=== PATIENT | male | born 1985 | race Caucasian/White ===

== ENCOUNTER 2023-01-15 12:23 | Emergency (ER) | payer OTHER ==
[~2023-01-15] VITALS: Ht 170.1 cm; Wt 92.0 kg
[2023-01-15 12:40] VITALS: BP 132/85
[2023-01-15] MEDS ORDERED: ONDANSETRON 4 MG (ZOFRAN) ORAL DISSOLVE TAB SL ONE (13:45)
[2023-01-15] MEDS ORDERED: LACTATED RINGERS 1,000 ML IV ONE (14:15)
[2023-01-15] MEDS ORDERED: COLCHICINE 0.6 MG (COLCRYS) TABLET PO ONE ×2 (14:15→15:30)
[2023-01-15] MEDS ORDERED: METOCLOPRAMIDE INJ 10 MG/2 ML (REGLAN) IVP ONE (14:15)
[2023-01-15] MEDS ORDERED: fentaNYL INJ 100 MCG/2 ML AMP IVP ONE (14:15)
[2023-01-15 14:28] LABS: BASOPHILS % (AUTO) 0 % (0-10); EOSINOPHILS # (AUTO) 0.1 10^3/uL (0.0-0.3); EOSINOPHILS % (AUTO) 1 % (0-10); HEMATOCRIT 45 % (40-54); HEMOGLOBIN 16.5 g/dL (13.3-17.7); LYMPHOCYTES # (AUTO) 1.7 10^3/uL (1.0-4.0); LYMPHOCYTES % (AUTO) 21 % (12-44); MEAN CORPUSCULAR HEMOGLOBIN 33 pg (25-34); MEAN CORPUSCULAR HGB CONC 37 g/dL (32-36); MEAN CORPUSCULAR VOLUME 88 fL (80-99); MEAN PLATELET VOLUME 9.9 fL (9.0-12.2); MONOCYTES # (AUTO) 0.7 10^3/uL (0.0-1.0); MONOCYTES % (AUTO) 9 % (0-12); NEUTROPHILS # (AUTO) 5.2 10^3/uL (1.8-7.8); NEUTROPHILS % (AUTO) 68 % (42-75); PLATELET COUNT 253 10^3/uL (130-400); WHITE BLOOD COUNT 7.7 10^3/uL (4.3-11.0)
--- NOTE | 2023-01-15 14:34 | Diagnostic Imaging Report ---
INDICATION: Left foot pain. COMPARISON: None. DISCUSSION: Three views of the left foot were obtained. Mild bunion formation noted. No fracture or dislocation. No erosion or soft tissue calcification. Alignment is anatomic. Soft tissues are unremarkable. No foreign body. IMPRESSION: No acute abnormality identified within the left foot. Dictated by: Dictated on workstation # [id number]
[2023-01-15 14:38] LABS: ALBUMIN 4.6 GM/DL (3.2-4.5)
[2023-01-15 14:39] LABS: CHLORIDE 105 MMOL/L (98-107); POTASSIUM 3.7 MMOL/L (3.6-5.0); SODIUM 141 MMOL/L (135-145)
[2023-01-15 14:40] LABS: CALCIUM 9.8 MG/DL (8.5-10.1)
[2023-01-15 14:41] LABS: GLUCOSE 80 MG/DL (70-105); TOTAL PROTEIN 7.9 GM/DL (6.4-8.2)
[2023-01-15 14:42] LABS: CARBON DIOXIDE 27 MMOL/L (21-32)
[2023-01-15 14:43] LABS: BILIRUBIN,TOTAL 0.8 MG/DL (0.1-1.0)
[2023-01-15 14:44] LABS: ALKALINE PHOSPHATASE 66 U/L (40-136)
[2023-01-15 14:45] LABS: CREATININE SERUM 0.94 MG/DL (0.60-1.30); GFR ESTIMATED 106
[2023-01-15 14:46] LABS: BUN/CREATININE RATIO 10
[2023-01-15 14:47] LABS: ALANINE AMINOTRANSFERASE 45 U/L (0-55)
--- NOTE | 2023-01-15 14:55 | ED Lower Extremity ---
General Chief Complaint: Lower Extremity Stated Complaint: PAIN LEFT FOOT Nursing Triage Note: redness and pain started on the first. now difficult to bear weight and ambulate. Source: patient Exam Limitations: no limitations History of Present Illness Date Seen by Provider: Jan 15, 2023 Time Seen by Provider: 13:57 Initial Comments This 37-year-old gentleman presents to the emergency room with complaints of pain and erythema of the medial distal left foot for the past 3 days. He has bright blanching erythema in the area as well. The focus of the area just prox imal to the MTP joint of the first toe. He has no history of gout. He denies any injury or break to the skin. He has had long-term problems with severe tendinitis and bunions in both feet. He has been trying ibuprofen, Mobic, hot bath, and ice without any improvement. He believes he has been dehydrated because this pain has been causing nausea and decreased oral intake. Allergies and Home Medications Allergies Coded Allergies: No Known Drug Allergies (Unverified , 01/15/23) Patient Home Medication List Home Medication List Reviewed: Yes Allopurinol (Allopurinol) 100 Mg Tablet, 100 MG PO DAILY Prescribed by: ANUP KENNEDY on 01/15/23 1559 Hydrocodone/Acetaminophen (Hydrocodone-Acetamin 5-325 mg) 5 Mg-325 Mg Tablet, 1 TAB PO Q4H PRN for PAIN-BREAKTHROUGH Prescribed by: ANUP KENNEDY on 01/15/23 1600 Indomethacin (Indomethacin) 25 Mg Capsule, 25 MG PO TID Prescribed by: ANUP KENNEDY on 01/15/23 155 Prednisone (Prednisone) 20 Mg Tab, 40 MG PO DAILY Prescribed by: ANUP KENNEDY on 01/15/23 1559 Review of Systems Constitutional: no symptoms reported EENTM: no symptoms reported Respiratory: no symptoms reported Cardiovascular: no symptoms reported Gastrointestinal: see HPI Genitourinary: no symptoms reported Musculoskeletal: see HPI Skin: see HPI Psychiatric/Neurological: No Symptoms Reported Past Zbieyho-Cvyxge-Kzcnve Hx Patient Social History Tobacco Use?: Yes Tobacco type used: Cigarettes Smoking Status: Current Everyday Smoker Use of E-Cig and/or Vaping dev: No Substance type: Marijuana Alcohol Use?: Yes Alcohol type: Beer Alcohol Frequency: Once in a while Pt feels they are or have been: No Immunizations Up To Date Influenza Vaccine Up-to-Date: Yes; Up-to-Date First/Initial COVID19 Vaccinat: "2 shots" Past Medical History Surgery/Hospitalization HX: ptsd, depression, anxiety, ostieoarthritis, multiple ortho issues, bilateral lower ext tendonitis. right shoulder surgery, visectomy Surgeries: Yes Orthopedic Respiratory: No Cardiac: No Neurological: No Genitourinary: No Gastrointestinal: No Musculoskeletal: Yes (foot tendonitis and bunions) Endocrine: No HEENT: No Cancer: No Psychosocial: Yes Anxiety, PTSD, Depression Physical Exam Vital Signs Vital Signs - First Documented 01/15/23 12:40 Temp 36.9 Pulse 115 Resp 16 B/P (MAP) 132/85 (101) Pulse Ox 97 O2 Delivery Room Air Capillary Refill : Less Than 3 Seconds Height, Weight, BMI Height: '" Weight: lbs. oz. kg; 31.00 BMI Method: General Appearance: WD/WN, mild distress HEENT: normal ENT inspection Cardiovascular: regular rate, rhythm, no edema, no gallop Respiratory: normal breath sounds, no respiratory distress Legs: left leg non-tender, left leg normal inspection, left leg normal range of motion, left leg no evidence of injury Knees: left knee non-tender, left knee normal inspection, left knee normal range of motion, left knee no evidence of injury Ankles: left ankle non-tender, left ankle normal inspection, left ankle normal range of motion, left ankle no evidence of injury Feet: left foot other (Bright blanching erythema radiating out from the first MTP joint area. Pain with any range of motion of the great toe. Normal pedal pulse) Neurologic/Psychiatric: no motor/sensory deficits, alert, normal mood/affect Skin: warm/dry, other (as above) Progress/Results/Core Measures Results/Orders Lab Results Laboratory Tests Test 01/15/23 14:20 Range/Units White Blood Count 7.7 4.3-11.0 10^3/uL Red Blood Count 5.07 4.30-5.52 10^6/uL Hemoglobin 16.5 13.3-17.7 g/dL Hematocrit 45 40-54 % Mean Corpuscular Volume 88 80-99 fL Mean Corpuscular Hemoglobin 33 25-34 pg Mean Corpuscular Hemoglobin Concent 37 H 32-36 g/dL Red Cell Distribution Width 12.3 10.0-14.5 % Platelet Count 253 130-400 10^3/uL Mean Platelet Volume 9.9 9.0-12.2 fL Immature Granulocyte % (Auto) 1 % Neutrophils (%) (Auto) 68 42-75 % Lymphocytes (%) (Auto) 21 12-44 % Monocytes (%) (Auto) 9 0-12 % Eosinophils (%) (Auto) 1 0-10 % Basophils (%) (Auto) 0 0-10 % Neutrophils # (Auto) 5.2 1.8-7.8 10^3/uL Lymphocytes # (Auto) 1.7 1.0-4.0 10^3/uL Monocytes # (Auto) 0.7 0.0-1.0 10^3/uL Eosinophils # (Auto) 0.1 0.0-0.3 10^3/uL Basophils # (Auto) 0.0 0.0-0.1 10^3/uL Immature Granulocyte # (Auto) 0.0 0.0-0.1 10^3/uL Sodium Level 141 135-145 MMOL/L Potassium Level 3.7 3.6-5.0 MMOL/L Chloride Level 105 98-107 MMOL/L Carbon Dioxide Level 27 21-32 MMOL/L Anion Gap 9 5-14 MMOL/L Blood Urea Nitrogen 9 7-18 MG/DL Creatinine 0.94 0.60-1.30 MG/DL Estimat Glomerular Filtration Rate 106 BUN/Creatinine Ratio 10 Glucose Level 80 70-105 MG/DL Uric Acid 7.0 2.6-7.2 MG/DL Calcium Level 9.8 8.5-10.1 MG/DL Corrected Calcium 8.5-10.1 MG/DL Total Bilirubin 0.8 0.1-1.0 MG/DL Aspartate Amino Transf (AST/SGOT) 22 5-34 U/L Alanine Aminotransferase (ALT/SGPT) 45 0-55 U/L Alkaline Phosphatase 66 40-136 U/L C-Reactive Protein High Sensitivity 2.48 H 0.00-0.50 MG/DL Total Protein 7.9 6.4-8.2 GM/DL Albumin 4.6 H 3.2-4.5 GM/DL My Orders Orders - ANUP NUÑEZ MD Ondansetron Oral Dissolve Tab (Zofran (01/15/23 13:45) Ed Iv/Invasive Line Start (01/15/23 14:07) Lactated Ringers (Lr 1000 Ml Iv Solution (01/15/23 14:15) Fentanyl Inj (Sublimaze Injection) (01/15/23 14:15) Colchicine Tablet (Colcrys Tablet) (01/15/23 14:15) Cbc With Automated Diff (01/15/23 14:07) Comprehensive Metabolic Panel (01/15/23 14:07) Hs C Reactive Protein (01/15/23 14:07) Uric Acid (01/15/23 14:07) Metoclopramide Injection (Reglan Injecti (01/15/23 14:15) Foot, Left, 3 Views (01/15/23 14:07) Colchicine Tablet (Colcrys Tablet) (01/15/23 15:30) Medications Given in ED Vital Signs/I&O 01/15/23 12:40 Temp 36.9 Pulse 115 Resp 16 B/P (MAP) 132/85 (101) Pulse Ox 97 O2 Delivery Room Air Blood Pressure Mean: 101 Progress Progress Note : Progress Note Patient was interviewed and examined. X-rayw of the foot were obtained and radiologist report was reviewed. There were no acute abnormalities. Zofran was given for nausea. Pain was treated with fentanyl and colchicine which did result in improvement. Labs were obtained, reviewed, and interpreted by me. There is no significant elevation in WBC or CRP suggesting this is not cellulitis. Uric acid was at the upper limits of normal supporting diagnosis of gout. See discharge instructions for further discussion. Diagnostic Imaging Diagonstic Imaging: Xray Plain Films/CT/US/NM/MRI: other (left foot) Comments NAME: TIM ESCOBAR [facility] REC#: [id number] PT STATUS: REG ER : 1985 PHYSICIAN: ANUP NUÑEZ MD ADMIT DATE: 01/15/23/ER Draft Date of Exam:01/15/23 FOOT, LEFT, 3 VIEWS INDICATION: Left foot pain. COMPARISON: None. DISCUSSION: Three views of the left foot were obtained. Mild bunion formation noted. No fracture or dislocation. No erosion or soft tissue calcification. Alignment is anatomic. Soft tissues are unremarkable. No foreign body. IMPRESSION: No acute abnormality identified within the left foot. Dictated on workstation # [id number] Dict: 01/15/23 1432 Trans: 01/15/23 1434 [id number] Interpreted by: BIA COOK MD Departure Impression Primary Impression: Gouty arthritis Disposition: HOME, SELF-CARE Condition: Improved Departure-Patient Inst. Decision time for Depature: 15:54 Referrals: NO,LOCAL PHYSICIAN (PCP/Family) Primary Care Physician Patient Instructions: Gout ED, Lifestyle Changes to Manage Gout Add. Discharge Instructions: Try changing your NSAID medication to indomethacin. Start with 50 mg 3 times daily for 2 or 3 days and then 25 mg times daily as needed. Start allopurinol in about 6 weeks. Take your prednisone early in the day to avoid sleep disturbance and with food or milk to avoid stomach upset. You may use hydrocodone for breakthrough pain. Elevation and icing may also be helpful in reducing pain. Follow-up with a primary care provider for further discussion about gout prevention. Drink plenty of water and observe a gout prevention diet. See information attached. Return to care if you have worsening symptoms despite following these instructions. All discharge instructions reviewed with patient and/or family. Voiced understanding. Scripts Allopurinol (Allopurinol) 100 Mg Tablet 100 MG PO DAILY, #30 TAB Prov: ANUP NUÑEZ MD 01/15/23 Prednisone (Prednisone) 20 Mg Tab 40 MG PO DAILY, #8 TAB Prov: ANUP NUÑEZ MD 01/15/23 Hydrocodone/Acetaminophen (Hydrocodone-Acetamin 5-325 mg) 5 Mg-325 Mg Tablet 1 TAB PO Q4H PRN for PAIN-BREAKTHROUGH, #10 TAB Prov: ANUP NUÑEZ MD 01/15/23 Indomethacin (Indomethacin) 25 Mg Capsule 25 MG PO TID, #30 CAP May take 50 mg 3 times a day for the first 2 or 3 days. Prov: ANUP NUÑEZ MD 01/15/23 ANUP NUÑEZ MD Jan 15, 2023 14:55
[2023-01-15] MEDS ORDERED: ACHD5005 PO (15:59)
[2023-01-15] MEDS ORDERED: INDO25CA99 PO (15:59)
[2023-01-15] MEDS ORDERED: ALLO100T PO (15:59)
[2023-01-15] MEDS ORDERED: PRD20T PO (15:59)
== END 2023-01-15 16:15 | disposition home or self-care (01) ==
LOC: EDUNIT# 12:23 → ER 12:29
DX: M10.9 Gout, unspecified (principal); R11.0 Nausea; F17.210 Nicotine dependence, cigarettes, uncomplicated
CPT/HCPCS: 36415; 73630; 80053; 84550; 85025; 86141